=== PATIENT | female | born 1970 | race Hispanic/Latino ===

== ENCOUNTER 2018-01-20 18:57 | Emergency (ER) | payer OTHER, SELFPAY ==
--- NOTE | 2018-01-20 20:45 | RAD REPORT ---
EXAM DESCRIPTION: VAS - Extremity Venous Uni Ltd - 01/20/2018 8:38 pm CLINICAL HISTORY: Leg swelling and edema. COMPARISON: None. FINDINGS: Right lower extremity venous system was interrogated with Doppler technique. Normal flow, compressibility and augmentation was noted. There is no DVT present. IMPRESSION: No evidence of right lower extremity deep venous thrombosis.
--- NOTE | 2018-01-20 20:49 | RAD REPORT ---
EXAM DESCRIPTION: RAD - Chest Single View - 01/20/2018 8:42 pm CLINICAL HISTORY: Chest pain. COMPARISON: None. FINDINGS: Portable technique limits examination quality. The lungs are grossly clear. The heart is normal in size. No displaced fractures. IMPRESSION: No acute intrathoracic process suspected.
[2018-01-20] MEDS ORDERED: MORPHINE 4 MG/ML SYR ONE (20:55)
[2018-01-20] MEDS ORDERED: NA CHLORIDE 0.9% 1,000 ML ONE (20:56)
[2018-01-20] MEDS ORDERED: ONDANSETRON 4 MG/2 ML VIAL ONE (20:56)
[2018-01-20 21:21] LABS: Absolute Lymphocytes (CBC) 1.7 K/uL (0.7-4.9); Absolute Monocytes 1.5 K/uL (0.1-1.3); Absolute Neutrophil 4.4 K/uL (1.8-8.0); Basophils % 0.8 % (0-1.3); Eosinophils % 0.8 % (0-4.4); Hematocrit 30.6 % (36.0-45.0); Lymphocytes % 21.9 % (15.3-44.8); MCH 21.3 pg (27.0-35.0); MCV 67.7 fL (80-100); MPV 7.8 fL (7.6-11.3); RBC Red Blood Cell Count 4.51 M/uL (3.86-4.86)
[2018-01-20 21:23] LABS: Protime INR 1.31
[2018-01-20 21:24] LABS: Bicarbonate 24 mEq/L (21-31); Glucose Level 113 mg/dL (65-120); Potassium 3.2 mEq/L (3.6-5.0); Sodium Level 133 mEq/L (135-145)
[2018-01-20 21:38] LABS: CKMB Creatine Kinase MB 0.5 ng/ml (0.3-4.0)
[2018-01-20 21:40] LABS: ALT/SGPT 24 IU/L (10-60); AST/SGOT 21 IU/L (10-42); Albumin 3.6 g/dL (3.2-5.5); Alkaline Phosphatase 101 IU/L (42-121); BUN Blood Urea Nitrogen 8 mg/dL (6-20); Bilirubin Direct 0.1 mg/dL (0-0.2); Bilirubin Total 0.3 mg/dL (0.3-1.2); Creatine Phosphokinase 24 IU/L (22-269); Magnesium 1.9 mg/dL (1.8-2.5); Protein, Total 8.1 g/dL (6.0-8.3)
[2018-01-20 21:55] LABS: Urine Blood TRACE (NEG); Urine Glucose NEGATIVE (NEG); Urine Protein NEGATIVE (NEG)
[2018-01-20 23:43] LABS: Platelet Estimate INCR; Urine White Blood Cell Casts OK
[2018-01-20 23:44] LABS: Anisocytosis 1+; Blood Morphology Comment NOTED (NOT SEEN); Hypochromasia 1+
[2018-01-21] MEDS ORDERED: MEPERIDINE HCL 50 MG/ML AMP ONE (00:52)
[2018-01-21] MEDS ORDERED: PROMETHAZINE 25 MG/ML VIAL ONE (00:53)
--- NOTE | 2018-01-21 01:06 | EDPHYS ---
Physician Documentation [facility] Name: Ellen Zayas Age: 47 yrs Sex: Female : 1970 Arrival Date: 01/20/2018 Time: 19:00 Bed 30 Private MD: ED Physician Elver Cunningham HPI: 01/20 20:03 This 47 yrs old Female presents to ER via Ambulatory with complaints of Pain pkl All Over. 20:03 Generalized pain all over. Onset: The symptoms/episode began/occurred 2 day(s) ago. The pkl patient has not experienced similar symptoms in the past. 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 - Social history:: Smoking status: Patient/guardian denies using tobacco. ROS: 20:03 Eyes: Negative for injury, pain, redness, and discharge, ENT: Negative for injury, pkl pain, and discharge, Neck: Negative for injury, pain, and swelling. 20:03 Cardiovascular: Positive for chest pain. 20:03 Respiratory: Negative for cough, shortness of breath. 20:03 Abdomen/GI: Positive for abdominal pain, diarrhea. 20:03 Back: Positive for pain at rest. 20:03 : Negative for urinary symptoms. 20:03 Skin: Negative for rash. 20:03 Neuro: Negative for altered mental status. 20:03 MS/extremity: Positive for pain, of the right calf. pkl Exam: 20:03 Head/Face: Normocephalic, atraumatic. Eyes: Pupils equal round and reactive to light, pkl extra-ocular motions intact. Lids and lashes normal. Conjunctiva and sclera are non-icteric and not injected. Cornea within normal limits. Periorbital areas with no swelling, redness, or edema. ENT: Nares patent. No nasal discharge, no septal abnormalities noted. Tympanic membranes are normal and external auditory canals are clear. Oropharynx with no redness, swelling, or masses, exudates, or evidence of obstruction, uvula midline. Mucous membranes moist. Neck: Trachea midline, no thyromegaly or masses palpated, and no cervical lymphadenopathy. Supple, full range of motion without nuchal rigidity, or vertebral point tenderness. No Meningismus. 20:03 Chest/axilla: Palpation: is normal, Axilla: are normal. 20:03 Cardiovascular: Rate: tachycardic, actual rate is 113 bpm, Rhythm: regular. 20:03 Respiratory: the patient does not display signs of respiratory distress, Respirations: normal, Breath sounds: are clear throughout. 20:03 Abdomen/GI: Bowel sounds: normal, Palpation: abdomen is soft and non-tender, in all quadrants. 20:03 Back: pain, that is moderate, of the upper back. 20:03 : Exam negative for acute changes. 20:03 Musculoskeletal/extremity: Exam is negative for acute changes. 20:03 Skin: Exam negative for rash. 20:03 Neuro: Orientation: is normal, Mentation: is normal, Cranial nerves: grossly normal, Motor: is normal. Vital Signs: 19:05 BP 126 / 89; Pulse 113; Resp 18; Temp 99.0(O); Pulse Ox 97% on R/A; Weight 65.77 kg; tw2 Height 4 ft. 9 in. (144.78 cm) (R); Pain 10/10; 22:06 BP 118 / 74; Pulse 77; Resp 18; Pulse Ox 100% on R/A; tl3 22:13 Pain 5/10; tl3 01/21 01:02 BP 138 / 74; Pulse 100; Resp 18; Pulse Ox 99% ; tl3 01:35 BP 124 / 83; Pulse 87; Resp 17; Pulse Ox 99% ; rk2 01/20 19:05 Body Mass Index 31.38 (65.77 kg, 144.78 cm) tw2 MDM: 01/20 19:57 Patient medically screened. pkl 22:49 Data reviewed: vital signs, nurses notes, lab test result(s), EKG, radiologic studies. pkl 01/20 20:14 Order name: Basic Metabolic Panel; Complete Time: 21:41 pkl 01/20 20:14 Order name: BNP; Complete Time: 21:41 pkl 01/20 20:14 Order name: CBC with Diff; Complete Time: 00:00 pkl 01/20 20:14 Order name: Ckmb; Complete Time: 21:41 pkl 01/20 20:14 Order name: CPK; Complete Time: : pkl 01/20 20:14 Order name: LFT's; Complete Time: : pkl 01/20 20:14 Order name: Magnesium; Complete Time: : pkl 01/20 20:14 Order name: PT-INR; Complete Time: :41 pkl 01/20 20:14 Order name: Ptt, Activated; Complete Time: : pkl 01/20 20:14 Order name: Troponin (emerg Dept Use Only); Complete Time: : pkl 01/20 20:14 Order name: D-Dimer; Complete Time: : pkl 01/20 20:14 Order name: Sed Rate; Complete Time: 00:00 pkl 01/20 20:15 Order name: Flu; Complete Time: : pkl 01/20 21:30 Order name: Urine Dipstick--Ancillary (enter results); Complete Time: 22:07 rg2 01/20 20:14 Order name: XRAY Chest (1 view); Complete Time: 21:34 pkl 01/20 20:14 Order name: EKG; Complete Time: 20:15 pkl 01/20 20:14 Order name: Cardiac monitoring; Complete Time: 22:14 pkl 01/20 20:14 Order name: EKG - Nurse/Tech; Complete Time: 22:15 pkl 01/20 20:18 Order name: US Extremity Venous Uni Ltd; Complete Time: 21:34 pkl 01/20 22:08 Order name: CT Chest For PE Angio pkl 01/20 22:50 Order name: Troponin (emerg Dept Use Only); Complete Time: 01:01 pkl 01/20 23:44 Order name: CBC Smear Scan; Complete Time: 00:00 EDMS 01/20 20:14 Order name: IV Saline Lock; Complete Time: 21:04 pkl 01/20 20:14 Order name: Labs collected and sent; Complete Time: 21:04 pkl 01/20 20:14 Order name: O2 Per Protocol; Complete Time: 21:13 pkl 01/20 20:14 Order name: O2 Sat Monitoring; Complete Time: 21:13 pkl 01/20 20:14 Order name: Urine Dipstick-Ancillary (obtain specimen); Complete Time: 21:25 pkl Administered Medications: 21:07 Drug: Zofran 4 mg Route: IVP; Infused Over: 3 mins; Site: left antecubital; tl3 22:13 Follow up: Response: No adverse reaction tl3 21:08 Drug: NS 0.9% 1000 ml Route: IV; Rate: 125 ml/hr; Site: left antecubital; Delivery: tl3 Primary tubing; 22:12 Follow up: IV Status: Completed infusion; IV Intake: 1000ml tl3 21:08 Drug: morphine 4 mg Route: IVP; Infused Over: 3 mins; Site: left antecubital; tl3 22:13 Follow up: Pain 5/10 Adult; Response: No adverse reaction; Pain is decreased tl3 01/21 01:04 Drug: K-Dur 40 mEq Route: PO; tl3 01:37 Follow up: Response: No adverse reaction rk2 01:05 Drug: Phenergan 12.5 mg Route: IVP; Site: left antecubital; tl3 01:36 Follow up: Response: No adverse reaction rk2 01:06 Drug: Demerol 50 mg Route: IVP; Infused Over: 4 mins; Site: left antecubital; tl3 01:36 Follow up: Response: No adverse reaction rk2 01:09 Drug: predniSONE 40 mg Route: PO; tl3 01:36 Follow up: Response: No adverse reaction rk2 Disposition: 01/21/18 01:05 Discharged to Home. Impression: Myalgia. Arthopathy. - Condition is Stable. - Prescriptions for Ultram 50 mg Oral Tablet - take 1 tablet by ORAL route every 8 hours As needed; 30 tablet. - Medication Reconciliation Form, Thank You Letter, Antibiotic Education, Prescription Opioid Use form. - Follow up: Private Physician; When: 2 - 3 days; Reason: Re-evaluation by your physician. - Problem is new. - Symptoms have improved. Signatures: Dispatcher [employer] EDMS Elver Cunningham MD MD pkl Karen Vaughn RN RN tw2 Peggy Wolf RN RN rk2 Brittany Kang RN RN tl3 Corrections: (The following items were deleted from the chart) 01/20 20:11 20:03 MS/extremity: Negative for acute changes, pkl pkl
--- NOTE | 2018-01-21 01:06 | ER ---
Nurse's Notes [facility] Name: Ellen Zayas Age: 47 yrs Sex: Female : 1970 Arrival Date: 01/20/2018 Time: 19:00 Bed 30 Private MD: Diagnosis: Myalgia. Arthopathy Presentation: 01/20 19:04 Presenting complaint: Patient states: i woke up Friday morning and everything was tw2 hurting, i have pain all over, my wrist is swollen, my ankle and my back. Transition of care: patient was not received from another setting of care. Onset of symptoms was January 20, 2018. Initial Sepsis Screen: Does the patient meet any 2 criteria? No. Patient's initial sepsis screen is negative. Does the patient have a suspected source of infection? No. Patient's initial sepsis screen is negative. Care prior to arrival: None. 19:04 Method Of Arrival: Ambulatory tw2 19:04 Acuity: CINDA 3 tw2 19:[address]: Octa[place] in [place] PCP. 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 - Social history:: Smoking status: Patient/guardian denies using tobacco. Screenin:15 Abuse screen: Denies threats or abuse. Nutritional screening: No deficits noted. tl3 Tuberculosis screening: No symptoms or risk factors identified. Fall Risk None identified. Assessment: 19:15 General: Appears uncomfortable, slender, well groomed, well developed, well nourished, tl3 Behavior is calm, cooperative, appropriate for age. Pain: Complains of pain in back, right hand, posterior aspect of left knee and left Achilles. Neuro: Level of Consciousness is awake, alert, obeys commands, Oriented to person, place, time, situation, Appropriate for age. Cardiovascular: Heart tones S1 S2 present. Respiratory: Airway is patent Trachea midline Respiratory effort is even, unlabored, Respiratory pattern is regular, symmetrical. GI: No signs and/or symptoms were reported involving the gastrointestinal system. : No signs and/or symptoms were reported regarding the genitourinary system. EENT: No signs and/or symptoms were reported regarding the EENT system. Derm: No signs and/or symptoms reported regarding the dermatologic system. Injury Description: pt denies any injury, feels sharp pain with movement and deep breathing. 22:06 Reassessment: Patient appears in no apparent distress at this time. No changes from tl3 previously documented assessment. Patient and/or family updated on plan of care and expected duration. Pain level reassessed. Patient is alert, oriented x 3, equal unlabored respirations, skin warm/dry/pink. pt resting quietly, bolus complete. 01/21 00:15 Reassessment: Patient appears in no apparent distress at this time. No changes from tl3 previously documented assessment. Patient and/or family updated on plan of care and expected duration. Pain level reassessed. Patient is alert, oriented x 3, equal unlabored respirations, skin warm/dry/pink. redrew troponin level and sent to lab. 01:02 Reassessment: Patient appears in no apparent distress at this time. No changes from tl3 previously documented assessment. Patient and/or family updated on plan of care and expected duration. Pain level reassessed. Patient is alert, oriented x 3, equal unlabored respirations, skin warm/dry/pink. Vital Signs: 01/20 19:05 BP 126 / 89; Pulse 113; Resp 18; Temp 99.0(O); Pulse Ox 97% on R/A; Weight 65.77 kg; tw2 Height 4 ft. 9 in. (144.78 cm) (R); Pain 10/10; 22:06 BP 118 / 74; Pulse 77; Resp 18; Pulse Ox 100% on R/A; tl3 22:13 Pain 5/10; tl3 01/21 01:02 BP 138 / 74; Pulse 100; Resp 18; Pulse Ox 99% ; tl3 01:35 BP 124 / 83; Pulse 87; Resp 17; Pulse Ox 99% ; rk2 01/20 19:05 Body Mass Index 31.38 (65.77 kg, 144.78 cm) tw2 ED Course: 01/20 19:00 Patient arrived in ED. tw3 19:05 Triage completed. tw2 19:05 Arm band placed on. tw2 19:[address] tl3 19:15 Patient has correct armband on for positive identification. Placed in gown. Bed in low tl3 position. Call light in reach. Side rails up X 1. Adult w/ patient. 19:15 No provider procedures requiring assistance completed. tl3 19:56 Brittany Kang, RN is Primary Nurse. tl3 19:56 Elver Cunningham MD is Attending Physician. pkl 20:38 US Extremity Venous Uni Ltd In Process Unspecified. EDMS 20:41 Patient moved to radiology via wheelchair. kc2 20:41 X-ray completed. Patient tolerated procedure well. kc2 20:41 Patient moved back from radiology. kc2 20:41 XRAY Chest (1 view) In Process Unspecified. EDMS 21:03 Flu Sent. rk2 21:34 Notified ED physician of a critical lab result(s). d-dimer 758. fc 22:[address] nj 22:29 CT completed. Patient tolerated procedure well. nj 22:29 Patient moved back from CT. nj 22:32 CT Chest For PE Angio In Process Unspecified. EDMS 01/21 01:38 IV discontinued. rk2 Administered Medications: 01/20 21:07 Drug: Zofran 4 mg Route: IVP; Infused Over: 3 mins; Site: left antecubital; tl3 22:13 Follow up: Response: No adverse reaction tl3 21:08 Drug: NS 0.9% 1000 ml Route: IV; Rate: 125 ml/hr; Site: left antecubital; Delivery: tl3 Primary tubing; 22:12 Follow up: IV Status: Completed infusion; IV Intake: 1000ml tl3 21:08 Drug: morphine 4 mg Route: IVP; Infused Over: 3 mins; Site: left antecubital; tl3 22:13 Follow up: Pain 5/10 Adult; Response: No adverse reaction; Pain is decreased tl3 01/21 01:04 Drug: K-Dur 40 mEq Route: PO; tl3 01:37 Follow up: Response: No adverse reaction rk2 01:05 Drug: Phenergan 12.5 mg Route: IVP; Site: left antecubital; tl3 01:36 Follow up: Response: No adverse reaction rk2 01:06 Drug: Demerol 50 mg Route: IVP; Infused Over: 4 mins; Site: left antecubital; tl3 01:36 Follow up: Response: No adverse reaction rk2 01:09 Drug: predniSONE 40 mg Route: PO; tl3 01:36 Follow up: Response: No adverse reaction rk2 Intake: 01/20 22:12 IV: 1000ml; Total: 1000ml. tl3 Outcome: 01/21 01:05 Discharge ordered by . pkrupa 01:37 Discharged to home ambulatory. rk2 01:37 Condition: good 01:37 Discharge instructions given to patient, Prescriptions given X 2. 01:38 Patient left the ED. rk2 Signatures: Dispatcher [employer] EDMS Elver Cunningham MD MD pkl Chretien, Felicia RN RN fc Karen Vaughn RN RN tw2 Arianne Kendall Nathan nj Wade, Tia 3 Peggy Wolf RN RN rk2 Brittany Kang RN RN tl3
[2018-01-21] MEDS ORDERED: predniSONE 20 MG TAB ONE (01:07)
[2018-01-21] MEDS ORDERED: POTASSIUM CL SA 10 MEQ TAB PO ONE (01:07)
--- NOTE | 2018-01-21 06:24 | RAD REPORT ---
EXAM DESCRIPTION: CT - Chest For Pe Angio - 01/21/2018 6:07 am CLINICAL HISTORY: Chest pain, shortness of breath A preliminary written report was provided at the time of the study, and the report was reviewed prio r to final dictation. COMPARISON: None. TECHNIQUE: Dynamically enhanced 3 mm thick images of the chest were obtained during administration o f approximately 150mL Isovue 370 IV contrast. Coronal and oblique reconstruction images were generate d and reviewed. Exam utilizes a protocol to evaluate the pulmonary arterial tree. All CT scans are performed using dose optimization technique as appropriate and may include automated exposure control or mA/KV adjustment according to patient size. FINDINGS: No pulmonary emboli are identified. The aorta as imaged shows no acute or suspicious finding. No pericardial thickening or effusion. No mass or consolidation. Mild bilateral dependent atelectasis present. No significant interstitial e misty or interstitial infiltrate seen. No pleural effusion or pleural thickening. No mediastinal or hilar suspicious masses. No chest wall masses or abnormal axillary lymphadenopathy. IMPRESSION: No pulmonary emboli identified. No other significant or suspicious findings.
--- NOTE | 2018-01-21 06:54 | EKG ---
Test Date: 2018-01-20 Test Time: 22:18:42 Teller Supervisor: ERICA MEASUREMENT RESULTS: Intervals: Rate: 78 DC: 160 QRSD: 92 QT: 390 QTc: 444 [place]: P: 21 DC: 160 QRS: 2 T: 28 INTERPRETIVE STATEMENTS: Normal sinus rhythm Normal ECG No previous ECG available for comparison Electronically Signed On 01-21-18 06:53:25 CDT by Jordan Carlos
== END 2018-01-21 01:38 | disposition home or self-care (01) ==
LOC: ER 18:57
DX: M12.9 Arthropathy, unspecified (principal)
CPT/HCPCS: 36415; 71045; 71275; 80048; 80076; 81003; 82550; 82553; 83735; 83880; 84484; 85025; 85379; 85610; 85652; 85730; 87804; 93005; 93971; 96361; 96374; 96375; 99284; J2175; J2405; J2550; J7030; J7512; Q9967